=== PATIENT | female | born 1950 | race Caucasian/White ===

== ENCOUNTER 2023-01-22 17:10 | Inpatient (IN) | payer OTHER ==
[~2023-01-22] VITALS: Ht 152.4 cm; Wt 68.0 kg
[2023-01-22 17:11] VITALS: BP 170/54; PULSE 69; RESP 18; TEMP 97.4; O2SAT 99
[2023-01-22] MEDS ORDERED: NACL 0.9% 1,000 ML IV ONE ×2 (18:00→22:50)
[2023-01-22 18:35] LABS: BASOPHILS % (AUTO) 0.4 % (0.0-2.0); HEMATOCRIT 38.5 % (36-48); LYMPHOCYTES # (AUTO) 0.6 K/uL (2.5-16.5); LYMPHOCYTES % (AUTO) 9.7 % (20.5-51.1); MEAN CORPUSCULAR HEMOGLOBIN 30 pg (27-31); MEAN CORPUSCULAR HGB CONC 34 g/dL (33-37); MEAN CORPUSCULAR VOLUME 90.4 fL (80-94); MONOCYTES # (AUTO) 0.4 K/uL (0.8-1.0); NEUTROPHILS % (AUTO) 82.9 % (42.2-75.2); PLATELET COUNT (AUTO) 318 K/uL (140-450); RED BLOOD CELL COUNT(AUTO) 4.26 MIL/uL (4.20-5.40); RED CELL DISTRIBUTION WIDTH 13.1 % (11.6-13.7)
[2023-01-22 19:01] LABS: ALANINE AMINOTRANSFERASE 37 U/L (12-78); ALBUMIN 3.5 g/dL (3.4-5.0); ALKALINE PHOSPHATASE 132 U/L (50-136); ANION GAP 11.9 (8-16); ASPARTATE AMINOTRANSFERASE 20 U/L (15-37); CALCIUM 9.5 mg/dL (8.5-10.1); CARBON DIOXIDE 28.8 mmol/L (21-32); CHLORIDE 101 mmol/L (98-107); CREATININE 0.8 mg/dL (0.6-1.3); GLUCOSE 111 mg/dL (74-106); LIPASE 31 U/L (16-77); POTASSIUM 3.7 mmol/L (3.5-5.1); SODIUM SERUM 138 mmol/L (136-145); TOTAL BILIRUBIN 0.4 mg/dL (0.0-1.0); TOTAL PROTEIN, SERUM 7.8 g/dL (6.4-8.2); UREA NITROGEN, BLOOD 9 mg/dL (7-18)
[2023-01-22 19:51] LABS: APPEARANCE,URINE CLEAR (CLEAR); BILIRUBIN,URINE NEGATIVE (NEGATIVE); BLOOD, URINE NEGATIVE (NEGATIVE); COLOR,URINE YELLOW (YELLOW); LEUKOCYTE ESTERASE ,URINE NEGATIVE (NEGATIVE); NITRITE, URINE NEGATIVE (NEGATIVE); PROTEIN,URINE NEGATIVE (NEGATIVE); UGLUCOSE NEGATIVE (NEGATIVE); UROBILINOGEN,URINE 0.2 EU/dL (0.2 - 1)
[2023-01-22] MEDS ORDERED: LISI-486 PO (23:12)
[2023-01-22] MEDS ORDERED: FLUO10CA21 PO (23:12)
[2023-01-22] MEDS ORDERED: LEVO125C2 PO (23:17)
[2023-01-22] MEDS ORDERED: CYAN25006 PO (23:17)
[2023-01-22] MEDS ORDERED: DONE10TA10 PO (23:17)
[2023-01-22] MEDS ORDERED: ATOR20TA PO (23:17)
[2023-01-22] MEDS ORDERED: CHOL500014 PO (23:17)
[2023-01-22 23:44] VITALS: BP 172/80; PULSE 62; PULSE 65; RESP 18; TEMP 98; O2SAT 98
[2023-01-23] MEDS ORDERED: ONDANSETRON 4 MG TAB PO ONE (02:05)
[2023-01-23 04:00] VITALS: BP 158/58; PULSE 61; PULSE 77; RESP 18; TEMP 96.9; O2SAT 98
[2023-01-23 08:00] VITALS: BP 162/59; PULSE 70; PULSE 71; RESP 17; RESP 18; TEMP 98.4; O2SAT 100
[2023-01-23] MEDS ORDERED: MAG SULF 2000 MG/WATER PREMIX 50 ML IV PRN (08:00)
[2023-01-23] MEDS ORDERED: POTASSIUM CHLORIDE 10 MEQ TABER PO PRN (09:15)
[2023-01-23] MEDS ORDERED: DOCUSATE SODIUM 100 MG GELCAP PO PRN (09:15)
[2023-01-23] MEDS ORDERED: lisinopriL 10 MG TAB PO SCH (09:36)
[2023-01-23] MEDS ORDERED: DONEPEZIL 10 MG TAB PO SCH (09:43)
[2023-01-23] MEDS ORDERED: FLUoxetine 20 MG CAP PO SCH (09:44)
[2023-01-23] MEDS: ACETAMINOPHEN 325 MG TAB PO PRN ×2 (09:59→17:46)
[2023-01-23 12:00] VITALS: BP 117/78; PULSE 62; PULSE 64; RESP 19; TEMP 97.7; O2SAT 99
[2023-01-23 16:00] VITALS: BP 128/71; PULSE 60; PULSE 66; RESP 19; TEMP 97.4; O2SAT 97
[2023-01-23] MEDS ORDERED: MECLIZINE 25 MG TAB PO PRN (17:05)
[2023-01-23 20:00] VITALS: BP 167/67; PULSE 65; PULSE 69; RESP 16; RESP 18; TEMP 97.4; O2SAT 93
[2023-01-24] VITALS (7 sets, daily range): BP systolic 140–176; BP diastolic 64–83; PULSE 63–86; RESP 16–18; TEMP 97.3–98.9; O2SAT 94–98
[2023-01-24] MEDS: MORPHINE SULFATE 2 MG/ML SYR IVP PRN (00:02)
[2023-01-24] MEDS: ONDANSETRON 4 MG TAB PO PRN ×2 (05:30→14:23)
[2023-01-24 06:39] LABS: BASOPHILS % (AUTO) 0.5 % (0.0-2.0); EOSINOPHILS % (AUTO) 0.3 % (0.0-4.0); HEMATOCRIT 39.5 % (36-48); HEMOGLOBIN 13.3 g/dL (12.0-16.0); LYMPHOCYTES # (AUTO) 1.1 K/uL (2.5-16.5); LYMPHOCYTES % (AUTO) 16.8 % (20.5-51.1); MEAN CORPUSCULAR HEMOGLOBIN 31 pg (27-31); MEAN CORPUSCULAR HGB CONC 34 g/dL (33-37); MEAN CORPUSCULAR VOLUME 91.2 fL (80-94); MONOCYTES # (AUTO) 0.6 K/uL (0.8-1.0); MONOCYTES % (AUTO) 8.4 % (1.7-9.3); NEUTROPHILS # (AUTO) 4.9 K/uL (1.8-7.7); PLATELET COUNT (AUTO) 321 K/uL (140-450); RED BLOOD CELL COUNT(AUTO) 4.34 MIL/uL (4.20-5.40); RED CELL DISTRIBUTION WIDTH 12.8 % (11.6-13.7); WHITE BLOOD COUNT (AUTO) 6.7 K/uL (4.8-10.8)
[2023-01-24 07:03] LABS: ANION GAP 13.2 (8-16); CALCIUM 9.4 mg/dL (8.5-10.1); CARBON DIOXIDE 27.9 mmol/L (21-32); CHLORIDE 100 mmol/L (98-107); CREATININE 0.8 mg/dL (0.6-1.3); GLUCOSE 87 mg/dL (74-106); POTASSIUM 3.1 mmol/L (3.5-5.1); SODIUM SERUM 138 mmol/L (136-145); UREA NITROGEN, BLOOD 8 mg/dL (7-18)
[2023-01-24] MEDS: DONEPEZIL 10 MG TAB PO SCH (08:37)
[2023-01-24] MEDS: FLUoxetine 10 MG CAP PO SCH (08:37)
[2023-01-24] MEDS: lisinopriL 10 MG TAB PO SCH (08:37)
[2023-01-24] MEDS: ATORVASTATIN 20 MG TAB PO SCH (08:37)
[2023-01-24] MEDS: NACL 0.9% 1,000 ML IV SCH ×2 (08:59→22:41)
[2023-01-24] MEDS ORDERED: hydrALAZINE 10 MG TAB PO STA (16:15)
[2023-01-24] MEDS ORDERED: hydrALAZINE 10 MG TAB ONE (17:27)
[2023-01-24] MEDS ORDERED: CRUSHER, PILL MC ONE (20:58)
[2023-01-24] MEDS: MELATONIN 3 MG TAB PO PRN (21:00)
[2023-01-25] MEDS: ACETAMINOPHEN 325 MG TAB PO PRN ×2 (06:39→12:57)
[2023-01-25 06:59] LABS: BASOPHILS % (AUTO) 0.7 % (0.0-2.0); EOSINOPHILS # (AUTO) 0.1 K/uL (0-0.4); EOSINOPHILS % (AUTO) 1.2 % (0.0-4.0); HEMATOCRIT 39.8 % (36-48); HEMOGLOBIN 13.2 g/dL (12.0-16.0); LYMPHOCYTES # (AUTO) 1.5 K/uL (2.5-16.5); LYMPHOCYTES % (AUTO) 32.8 % (20.5-51.1); MEAN CORPUSCULAR HEMOGLOBIN 30 pg (27-31); MEAN CORPUSCULAR HGB CONC 33 g/dL (33-37); MEAN CORPUSCULAR VOLUME 91.5 fL (80-94); MONOCYTES # (AUTO) 0.5 K/uL (0.8-1.0); MONOCYTES % (AUTO) 10.9 % (1.7-9.3); NEUTROPHILS # (AUTO) 2.6 K/uL (1.8-7.7); NEUTROPHILS % (AUTO) 54.4 % (42.2-75.2); PLATELET COUNT (AUTO) 302 K/uL (140-450); RED BLOOD CELL COUNT(AUTO) 4.35 MIL/uL (4.20-5.40); RED CELL DISTRIBUTION WIDTH 12.9 % (11.6-13.7); WHITE BLOOD COUNT (AUTO) 4.7 K/uL (4.8-10.8)
[2023-01-25 07:19] LABS: ANION GAP 14.5 (8-16); CALCIUM 9.4 mg/dL (8.5-10.1); CARBON DIOXIDE 25.3 mmol/L (21-32); CHLORIDE 104 mmol/L (98-107); CREATININE 0.9 mg/dL (0.6-1.3); GLUCOSE 83 mg/dL (74-106); POTASSIUM 3.8 mmol/L (3.5-5.1); SODIUM SERUM 140 mmol/L (136-145); UREA NITROGEN, BLOOD 11 mg/dL (7-18)
[2023-01-25] MEDS: lisinopriL 10 MG TAB PO SCH (08:14)
[2023-01-25] MEDS: DONEPEZIL 10 MG TAB PO SCH (08:14)
[2023-01-25] MEDS: ATORVASTATIN 20 MG TAB PO SCH (08:14)
[2023-01-25] MEDS: FLUoxetine 10 MG CAP PO SCH (08:14)
[2023-01-25 08:35] VITALS: BP 148/76; PULSE 55; RESP 18; TEMP 97.6; O2SAT 100
[2023-01-25] MEDS: LEVOTHYROXINE 0.112 MG TAB PO SCH (08:48)
[2023-01-25] MEDS: ONDANSETRON 4 MG TAB PO PRN ×2 (09:48→20:46)
[2023-01-25 16:04] VITALS: BP 168/67; PULSE 58; RESP 18; TEMP 97.3; O2SAT 97
[2023-01-25 16:26] VITALS: BP 126/66; PULSE 59
[2023-01-25] MEDS ORDERED: ONDA-188 PO (16:54)
[2023-01-25 17:10] VITALS: BP 126/66; PULSE 59; RESP 18; TEMP 97.4
[2023-01-25 20:00] VITALS: BP 130/62; PULSE 68; RESP 18; TEMP 97.2; O2SAT 98
[2023-01-25] MEDS: MELATONIN 3 MG TAB PO PRN (23:08)
[2023-01-26] MEDS: LEVOTHYROXINE 0.112 MG TAB PO SCH (05:54)
[2023-01-26 08:00] VITALS: BP_SYST 153; BP_SYST 184; BP_DIAS 90; BP_DIAS 98; PULSE 68; PULSE 87; RESP 18; TEMP 96.9; TEMP 98.5; O2SAT 100; O2SAT 97
[2023-01-26] MEDS: FLUoxetine 10 MG CAP PO SCH (08:36)
[2023-01-26] MEDS: lisinopriL 10 MG TAB PO SCH (08:37)
[2023-01-26] MEDS: ATORVASTATIN 20 MG TAB PO SCH (08:37)
[2023-01-26] MEDS: DONEPEZIL 10 MG TAB PO SCH (08:40)
[2023-01-26] MEDS ORDERED: FAMO-90 PO (09:26)
[2023-01-26] MEDS: ONDANSETRON 4 MG TAB PO PRN (09:29)
[2023-01-26] MEDS: MORPHINE SULFATE 2 MG/ML SYR IVP PRN (11:05)
== END 2023-01-26 16:10 | disposition home or self-care (01) | DRG 641 ==
LOC: MED 17:10 → OBSVTOIN 22:46 → MMU 22:46 → MTU 22:55
PROVIDERS: ADMIT Family Medicine; ATTEND Family Medicine
DX: E86.1 Hypovolemia (principal); R11.2 Nausea with vomiting, unspecified; I10 Essential (primary) hypertension; E03.9 Hypothyroidism, unspecified; F03.90 Unspecified dementia, unspecified severity, without behavioral disturbance, psychotic disturbance, mood disturbance, and anxiety; F41.9 Anxiety disorder, unspecified; E78.5 Hyperlipidemia, unspecified; Z88.1 Allergy status to other antibiotic agents; Z88.8 Allergy status to other drugs, medicaments and biological substances; Z79.899 Other long term (current) drug therapy
CPT/HCPCS: 36415; 70450; 71045; 80048; 80053; 81003; 83690; 83735; 84484; 85025; 87081; 93005; 96360; 97116; 97530; 99285; J2270; Q0092; Q0162; Q9967